=== PATIENT | male | born 1965 | race Caucasian/White ===

== ENCOUNTER 2019-10-01 18:42 | Emergency (ER) | payer MEDICAID, SELFPAY ==
[~2019-10-01] VITALS: Ht 180.3 cm; Wt 70.7 kg
[2019-10-01 18:55] VITALS: BP 105/71
[2019-10-01 20:00] LABS: BASOPHILS # (AUTO) 0.04 x10^3/uL (0-0.1); BASOPHILS % (AUTO) 1 % (0-1); EOSINOPHILS # (AUTO) 0.07 x10^3/uL (0-0.4); EOSINOPHILS % (AUTO) 1 % (1-7); LYMPHOCYTES % (AUTO) 18 % (22-44); MD NO; MEAN CORPUSCULAR HEMOGLOBIN 30.6 pg (27.5-34.5); MEAN CORPUSCULAR HGB CONC 33.6 g/dL (33.2-36.2); MEAN CORPUSCULAR VOLUME 90.8 fL (81-97); MEAN PLATELET VOLUME 8.8 fL (7.4-10.4); MONOCYTES # (AUTO) 0.61 x10^3/uL (0.2-0.8); MONOCYTES % (AUTO) 7 % (2-9); NEUTROPHILS # (AUTO) 6.32 x10^3/uL (1.8-6.8); NEUTROPHILS % (AUTO) 74 % (42-75); PLATELET COUNT 186 x10^3/uL (130-400); RED BLOOD COUNT 4.65 x10^6/uL (4.38-5.82); RED CELL DISTRIBUTION WIDTH 14.2 % (9.4-14.8)
[2019-10-01 20:11] LABS: ALBUMIN 3.7 g/dL (3.4-5.0); ANION GAP 6 mmol/L (5-15); CALCIUM 8.9 mg/dL (8.5-10.1); CHLORIDE 107 mmol/L (98-107); SALICYLATE LEVEL 5.1 mg/dL (2.8-20.0)
[2019-10-01 20:14] LABS: ALANINE AMINOTRANSFERASE 26 U/L (12-78); ALKALINE PHOSPHATASE 60 U/L (45-117); BILIRUBIN,TOTAL 0.5 mg/dL (0.2-1.0); CREATININE 0.93 mg/dL (0.7-1.3); TOTAL PROTEIN 7.2 g/dL (6.4-8.2)
[2019-10-01 20:29] LABS: AMPHETAMINE SCREEN, URINE Negative (Negative); BARBITURATE SCREEN, URINE Negative (Negative); BENZODIAZEPINE SCREEN, URINE Negative (Negative); CANNABINOID SCREEN, URINE Positive (Negative); COCAINE SCREEN, URINE Negative (Negative); METHADONE SCREEN, URINE Negative (Negative); OPIATE SCREEN, URINE Negative (Negative)
--- NOTE | 2019-10-01 21:00 | NUR ---
PT RESTING COMFORTABLY WITH LIGHTS OFF, MONITOR IN PLACE. AWAITING TELEPSYCH. NO OTHER NEEDS AT THIS TIME.
--- NOTE | 2019-10-01 23:00 | NUR ---
TALKED WITH TELE PSYCH. RECCOMENDED INPATIENT HOLD, NOTIFIED SUP. PT PLACED IN PSYCH ROOM WITH SITTER.
--- NOTE | 2019-10-01 23:12 | NUR ---
report from tanisha clay. pt resting on [facility], room secured. pt belongings labeled and placed in locker. sitter at doorway for frequent checks.
--- NOTE | 2019-10-02 00:30 | NUR ---
REPORT TO OMAR OKEEFE
== END 2019-10-02 00:44 ==
LOC: ED 20:58
DX: F33.9 Major depressive disorder, recurrent, unspecified (principal)
CPT/HCPCS: 36415; 80053; 80307; 85025; 99285

== ENCOUNTER 2019-10-02 00:17 | Inpatient (IN) | payer MEDICAID ==
[~2019-10-02] VITALS: Ht 180.3 cm; Wt 66.5 kg
[2019-10-02 01:24] VITALS: BP 138/87
[2019-10-02] MEDS ORDERED: DOCUSATE 100 MG CAPSULE PO PRN (01:30)
[2019-10-02] MEDS ORDERED: BISACODYL 10 MG SUPP PR PRN (01:30)
[2019-10-02] MEDS ORDERED: POLYETHYLENE GLYCOL 17 GM PACKET PO PRN (01:30)
[2019-10-02] MEDS ORDERED: ONDANSETRON ODT 4 MG PO PRN (01:30)
[2019-10-02] MEDS ORDERED: ACETAMINOPHEN 325 MG TABLET PO PRN (01:30)
[2019-10-02 01:34] LABS: MICROSCOPIC NOT IND
[2019-10-02 01:36] LABS: CULTURE INDICATED? NO
[2019-10-02 02:00] LABS: CHOL/HDL RATIO 4.2; FREE T4 (FREE THYROXINE) 0.75 ng/dL (0.76-1.46); LDL/HDL RATIO 2.6 (0.5-3.0)
[2019-10-02] MEDS ORDERED: PLEASE ENTER HEIGHT AND WEIGHT MC SCH (02:00)
[2019-10-02] MEDS ORDERED: FLU VACC QS2019-20 36MOS UP/PF 0.5 ML IM-VACC ONE (06:30)
[2019-10-02 07:47] VITALS: BP 124/84
[2019-10-02] MEDS: NICOTINE 21 MG/24 HR PATCH.TD24 TD SCH (09:30)
[2019-10-02 19:30] VITALS: BP 124/82
[2019-10-02] MEDS: MIRTAZAPINE 15 MG TABLET PO SCH (20:56)
[2019-10-03 07:46] VITALS: BP 128/77
[2019-10-03] MEDS: NICOTINE 21 MG/24 HR PATCH.TD24 TD SCH (09:00)
[2019-10-03 19:41] VITALS: BP 112/72
[2019-10-03] MEDS: MIRTAZAPINE 15 MG TABLET PO SCH (20:34)
[2019-10-04 07:34] VITALS: BP 115/74
[2019-10-04] MEDS: NICOTINE 21 MG/24 HR PATCH.TD24 TD SCH (08:36)
[2019-10-04 19:39] VITALS: BP 122/76
[2019-10-04] MEDS: MIRTAZAPINE 15 MG TABLET PO SCH (20:11)
[2019-10-05 07:37] VITALS: BP 109/74
[2019-10-05] MEDS: NICOTINE 21 MG/24 HR PATCH.TD24 TD SCH (09:00)
[2019-10-05 19:57] VITALS: BP 131/77
[2019-10-05] MEDS: MIRTAZAPINE 15 MG TABLET PO SCH (20:24)
[2019-10-06 07:43] VITALS: BP 125/81
[2019-10-06] MEDS: NICOTINE 21 MG/24 HR PATCH.TD24 TD SCH (09:00)
[2019-10-06 19:00] VITALS: BP 117/74
[2019-10-06] MEDS: MIRTAZAPINE 15 MG TABLET PO SCH (20:30)
[2019-10-07 07:30] VITALS: BP 113/72
[2019-10-07] MEDS: NICOTINE 21 MG/24 HR PATCH.TD24 TD SCH ×2 (08:24→08:30)
[2019-10-07 19:11] VITALS: BP 109/72
[2019-10-07] MEDS: MIRTAZAPINE 15 MG TABLET PO SCH (20:31)
[2019-10-08 07:14] VITALS: BP 111/76
[2019-10-08] MEDS: NICOTINE 21 MG/24 HR PATCH.TD24 TD SCH (08:41)
[2019-10-08] MEDS ORDERED: NICO-487 TD (14:27)
[2019-10-08] MEDS ORDERED: MIRT-34 PO (14:27)
[2019-10-08 19:34] VITALS: BP 122/73
[2019-10-08] MEDS: MIRTAZAPINE 15 MG TABLET PO SCH (20:17)
[2019-10-09 07:36] VITALS: BP 120/72
[2019-10-09] MEDS: NICOTINE 21 MG/24 HR PATCH.TD24 TD SCH (08:17)
== END 2019-10-09 10:05 | disposition home or self-care (01) | DRG 885 ==
LOC: 3E 00:48
PROVIDERS: ADMIT Psychiatry & Neurology Psychosomatic Medicine; ATTEND Psychiatry & Neurology Psychosomatic Medicine
DX: F33.2 Major depressive disorder, recurrent severe without psychotic features (principal); F15.20 Other stimulant dependence, uncomplicated; F17.200 Nicotine dependence, unspecified, uncomplicated; G47.00 Insomnia, unspecified; Z59.0 Homelessness; Z79.899 Other long term (current) drug therapy; Z81.8 Family history of other mental and behavioral disorders
CPT/HCPCS: 36415; 80061; 81003; 82607; 84439; 84443; 90686; 93005

== ENCOUNTER 2020-01-29 09:59 | Emergency (ER) | payer MEDICAID ==
[~2020-01-29] VITALS: Ht 182.9 cm; Wt 79.0 kg
[~2020-01-29 09:59] MED LIST: MIRT-34 PO; NICO-487 TD
[2020-01-29 10:03] VITALS: BP 136/89
== END 2020-01-29 10:55 | disposition home or self-care (01) ==
LOC: ED 10:16
DX: J45.31 Mild persistent asthma with (acute) exacerbation (principal); Z76.0 Encounter for issue of repeat prescription; F17.200 Nicotine dependence, unspecified, uncomplicated
CPT/HCPCS: 99281

== ENCOUNTER 2020-07-16 18:02 | Inpatient (IN) | payer MEDICAID ==
[~2020-07-16] VITALS: Ht 180.3 cm; Wt 73.3 kg
--- NOTE | 2020-07-16 18:11 | NUR ---
EKG DONE IN TRIAGE
--- NOTE | 2020-07-16 18:16 | NUR ---
PT BROUGHT BACK FROM TRIAGE WITH CHIEF COMPLAINT OF WORSENING CHEST PAIN FOR ONE WEEK. EKG DONE IN TRIAGE SHOWS POSSIBLE STEMI. CODE CARDIAC CALLED. PT ALERT ORIENTED ABLE TO ANSWER ALL QUESTIONS AND FOLLOW COMMANDS. TOOK "LOTS" OF [facility] [employer]ER.
--- NOTE | 2020-07-16 18:18 | NUR ---
181 code cardiac paged per dr evans [phone] chavez returned call and spoke with dr evans
[2020-07-16 18:34] LABS: BASOPHILS % (AUTO) 1 % (0-1); EOSINOPHILS % (AUTO) 1 % (1-7); LYMPHOCYTES % (AUTO) 11 % (22-44); MEAN CORPUSCULAR HEMOGLOBIN 29.9 pg (27.5-34.5); MEAN CORPUSCULAR HGB CONC 33.1 g/dL (33.2-36.2); MONOCYTES % (AUTO) 7 % (2-9); NEUTROPHILS % (AUTO) 80 % (42-75); PLATELET COUNT 143 x10^3/uL (130-400); RED BLOOD COUNT 4.88 x10^6/uL (4.38-5.82)
[2020-07-16 18:46] LABS: ALBUMIN 3.9 g/dL (3.4-5.0); ANION GAP 5 mmol/L (5-15); CALCIUM 8.8 mg/dL (8.5-10.1); CHLORIDE 107 mmol/L (98-107); CREATININE 0.87 mg/dL (0.7-1.3)
--- NOTE | 2020-07-16 18:46 | NUR ---
CARDIO MD AT BEDSIDE
[2020-07-16] MEDS ORDERED: BIVALIRUDIN 250 MG ONE (18:49)
[2020-07-16] MEDS ORDERED: HEPARIN 1,000 UNITS/ML, 10ML ONE (18:49)
[2020-07-16] MEDS ORDERED: LIDOCAINE-MPF 1%, 5ML ONE (18:49)
[2020-07-16] MEDS ORDERED: NITROGLYCERIN 30 MCG/ML, 20ML VIAL ONE (18:49)
[2020-07-16] MEDS ORDERED: FENTANYL PF 250 MCG/5ML ONE (18:49)
[2020-07-16] MEDS ORDERED: VERAPAMIL 2.5 MG/ML, 2ML ONE (18:49)
[2020-07-16] MEDS ORDERED: MIDAZOLAM 1 MG/ML, 5ML ONE (18:49)
[2020-07-16 18:50] LABS: MD SCAN
--- NOTE | 2020-07-16 18:50 | NUR ---
80 MG ATORVASTATIN ADMINISTERED PER DR. ZHANG
--- NOTE | 2020-07-16 18:54 | NUR ---
Report received from OMAR Medeiros. Patient using the urinal then prepped for wheelabrator operator.
--- NOTE | 2020-07-16 18:58 | NUR ---
Patient finished using urinal; [facility] house supervisor stated this RN did not need to escort patient.
[2020-07-16] MEDS ORDERED: MORPHINE SULFATE 4 MG/ML, 1ML IVPush PRN (19:00)
[2020-07-16] MEDS ORDERED: ONDANSETRON 2MG/ML, 2ML IVPush ONE (19:00)
[2020-07-16] MEDS ORDERED: TICAGRELOR 90 MG TABLET ONE ×2 (19:23→19:25)
[2020-07-16] MEDS: METOPROLOL TARTRATE 25 MG TAB PO SCH (20:06)
[2020-07-16] MEDS: TICAGRELOR 90 MG TABLET PO SCH (20:07)
[2020-07-16] MEDS: ATORVASTATIN 80 MG TABLET PO SCH (20:07)
[2020-07-16] MEDS: LISINOPRIL 5 MG TABLET PO SCH (20:08)
[2020-07-16 20:11] VITALS: BP 121/81
[2020-07-17 04:00] VITALS: BP 121/69
[2020-07-17] MEDS ORDERED: ALBUTEROL HFA 90 MCG/SPRAY INH PRN (04:00)
[2020-07-17] MEDS ORDERED: ALBU90AE2 INH (04:24)
[2020-07-17 04:45] LABS: BASOPHILS % (AUTO) 1 % (0-1); EOSINOPHILS % (AUTO) 1 % (1-7); LYMPHOCYTES % (AUTO) 12 % (22-44); MEAN CORPUSCULAR HEMOGLOBIN 30.1 pg (27.5-34.5); MEAN CORPUSCULAR HGB CONC 33.6 g/dL (33.2-36.2); MEAN PLATELET VOLUME 9.7 fL (7.4-10.4); MONOCYTES % (AUTO) 9 % (2-9); NEUTROPHILS % (AUTO) 78 % (42-75); PLATELET COUNT 143 x10^3/uL (130-400); RED BLOOD COUNT 4.68 x10^6/uL (4.38-5.82); RED CELL DISTRIBUTION WIDTH 14.3 % (9.4-14.8)
[2020-07-17 04:56] LABS: ANION GAP 4 mmol/L (5-15); CALCIUM 8.9 mg/dL (8.5-10.1); CHLORIDE 114 mmol/L (98-107)
[2020-07-17 04:58] LABS: MD NO
[2020-07-17 05:00] LABS: CHOL/HDL RATIO 4.3; CHOLESTEROL, TOTAL 158 mg/dL (140-239); CREATININE 0.86 mg/dL (0.7-1.3); HDL CHOL % 23 % (26-37); HDL CHOLESTEROL (DIRECT) 37 mg/dL (40-60); LDL CHOLESTEROL,CALCULATED 76 mg/dL (54-169); LDL/HDL RATIO 2.1 (0.5-3.0); TRIGLYCERIDES 225 mg/dL (50-200); VLDL CHOLESTEROL 45 mg/dL (0-25)
[2020-07-17] MEDS: METOPROLOL TARTRATE 25 MG TAB PO SCH ×2 (05:37→18:28)
[2020-07-17 08:00] VITALS: BP 112/83
[2020-07-17] MEDS: ASPIRIN 81 MG TABLET EC PO SCH (08:58)
[2020-07-17] MEDS: TICAGRELOR 90 MG TABLET PO SCH ×2 (08:58→21:40)
[2020-07-17] MEDS: LISINOPRIL 5 MG TABLET PO SCH ×2 (09:02→21:40)
[2020-07-17 09:03] VITALS: BP 110/71
[2020-07-17 12:50] VITALS: BP 116/76
[2020-07-17 18:52] VITALS: BP 109/69
[2020-07-17] MEDS: ATORVASTATIN 80 MG TABLET PO SCH (21:39)
[2020-07-18 00:20] VITALS: BP 110/74
[2020-07-18] MEDS: METOPROLOL TARTRATE 25 MG TAB PO SCH (06:38)
[2020-07-18 07:05] VITALS: BP 110/69
[2020-07-18 08:32] VITALS: BP 102/63
[2020-07-18] MEDS: TICAGRELOR 90 MG TABLET PO SCH (08:34)
[2020-07-18] MEDS: ASPIRIN 81 MG TABLET EC PO SCH (08:34)
[2020-07-18] MEDS: LISINOPRIL 5 MG TABLET PO SCH (08:35)
[2020-07-18] MEDS ORDERED: TICA90TA PO (09:01)
[2020-07-18] MEDS ORDERED: ASPI81TA45 PO (09:01)
[2020-07-18] MEDS ORDERED: METO25TA35 PO (09:01)
[2020-07-18] MEDS ORDERED: LISI5TAB7 PO (09:01)
[2020-07-18] MEDS ORDERED: ATOR-2 PO (09:01)
[2020-07-18] MEDS ORDERED: FLU VACC QS2020-21(6MOS UP)/PF 60MCG/0.5 ML SYR IM-VACC ONE (10:00)
== END 2020-07-18 11:10 | disposition home or self-care (01) | DRG 246 ==
LOC: ED 19:02 → EDIP 19:27 → CCU 19:41 → 5SO 07-17 08:39 → DCLOUNGE 07-18 11:06
PROVIDERS: ADMIT Family Medicine; ATTEND Internal Medicine
PROC: 027034Z Dilation of Coronary Artery, One Artery with Drug-eluting Intraluminal Device, Percutaneous Approach (ICD-10-PCS; principal; 2020-07-16)
PROC: 4A023N7 Measurement of Cardiac Sampling and Pressure, Left Heart, Percutaneous Approach (ICD-10-PCS; 2020-07-16)
PROC: B2111ZZ Fluoroscopy of Multiple Coronary Arteries using Low Osmolar Contrast (ICD-10-PCS; 2020-07-16)
PROC: B2151ZZ Fluoroscopy of Left Heart using Low Osmolar Contrast (ICD-10-PCS; 2020-07-16)
DX: I21.09 ST elevation (STEMI) myocardial infarction involving other coronary artery of anterior wall (principal); I50.41 Acute combined systolic (congestive) and diastolic (congestive) heart failure; D72.828 Other elevated white blood cell count; E78.1 Pure hyperglyceridemia; E78.5 Hyperlipidemia, unspecified; F12.10 Cannabis abuse, uncomplicated; F17.210 Nicotine dependence, cigarettes, uncomplicated; Z81.8 Family history of other mental and behavioral disorders; Z82.49 Family history of ischemic heart disease and other diseases of the circulatory system; F32.9 Major depressive disorder, single episode, unspecified; I25.10 Atherosclerotic heart disease of native coronary artery without angina pectoris; I25.5 Ischemic cardiomyopathy; J45.20 Mild intermittent asthma, uncomplicated
CPT/HCPCS: 36415; 71045; 80047; 80048; 80061; 82040; 84484; 85025; 87081; 90686; 93005; 93306; 93356; 93458; 99156; C1769; C1894; G0378; J0583; J1644; J2250; J3010; C1725; C1874; C1887; Q9967